=== PATIENT | male | born 1975 | race Caucasian/White ===

== ENCOUNTER 2022-05-22 21:32 | Emergency (ER) | payer OTHER ==
[2022-05-22] MEDS ORDERED: Sodium Chloride 0.9% 1,000 ML IV ONE (22:43)
[2022-05-22] MEDS ORDERED: Sodium Chloride 0.9% 10 ML Syringe FLUSH PRN (22:43)
[2022-05-22] MEDS ORDERED: Sodium Chloride 0.9% 2.5 ML Syringe FLUSH PRN (22:43)
[2022-05-22 23:30] LABS: CARBON DIOXIDE,CO2 29.9 mmol/L (21.0-32.0); POTASSIUM,K 3.8 mmol/L (3.5-5.1)
[2022-05-22] MEDS ORDERED: Ketorolac 30 MG/ML SDV IVPUSH ONE (23:56)
[2022-05-22] MEDS ORDERED: HYDROmorphone 1 MG/ML Syringe IVPUSH ONE (23:56)
[2022-05-22] MEDS ORDERED: Ondansetron 4 MG/2 ML SDV IVPUSH ONE (23:56)
[2022-05-23] MEDS ORDERED: Tamsulosin 0.4 MG Cap.ER PO ONE (00:48)
[2022-05-23 02:16] VITALS: BP 159/63; PULSE 87
== END 2022-05-23 01:50 | disposition home or self-care (01) ==
LOC: MW.ED 21:32
DX: N13.2 Hydronephrosis with renal and ureteral calculous obstruction (principal); E78.00 Pure hypercholesterolemia, unspecified; I10 Essential (primary) hypertension; K21.9 Gastro-esophageal reflux disease without esophagitis; E66.9 Obesity, unspecified; Z68.35 Body mass index [BMI] 35.0-35.9, adult; Z88.0 Allergy status to penicillin; Z79.899 Other long term (current) drug therapy
CPT/HCPCS: 36415; 74176; 80053; 81001; 83690; 85025; 96361; 96374; 96375; 99284; A9270; J1170; J1885; J2405; J3490; J7030